=== PATIENT | male | born 1985 ===

== ENCOUNTER 2016-12-12 09:20 | Emergency (ER) | payer BC ==
[2016-12-12 10:15] VITALS: BP 140/78
--- NOTE | 2016-12-12 10:32 | UC ---
UC General HPI - HPI Summary HPI Summary: complaint of rash under his arm that he noticed 2 weeks ago treated it with neosporin, lotrimin and hydrocortisone - helped reduce itching but hasn't changed in size at beginning of rash it was itchy and dried out and irritated denies fever and chills denies any new soaps ,medications,deoderant or detergents - History of Current Complaint Chief Complaint: [facility] Stated Complaint: SKIN COMPLAINT Time Seen by Provider: 12/12/16 10:25 Hx Obtained From: Patient - Allergy/Home Medications Allergies/Adverse Reactions: Allergies Allergy/AdvReac Type Severity Reaction Status Date / Time No Known Allergies Allergy Verified 12/12/16 10:15 Home Medications: Home Medications Clotrimazole 1% TOPICAL (NF) [Lotrimin 1% TOPICAL (NF)] 12/12/16 [History] Hydrocortisone 0.5% CM(NF) [Hydrocortisone 0.5% CREAM(NF)] 12/12/16 [History] Ibuprofen TAB* [Advil TAB*] 12/12/16 [History] Neomycin/Polym/Bacit TOP OINT* [Neosporin TOP OINT TUBE*] 12/12/16 [History] PMH/Surg Hx/FS Hx/Imm Hx Previously Healthy: Yes Endocrine History Of: Denies: Diabetes, Thyroid Disease Cardiovascular History Of: Denies: Cardiac Disorders, Hypertension Respiratory History Of: Denies: COPD, Asthma GI/ History Of: Denies: Ulcer - Surgical History Surgical History: None - Family History Known Family History: Negative: Cardiac Disease, Hypertension, Diabetes - Social History Occupation: Employed Full-time Lives: With Family Alcohol Use: Rare Substance Use Type: None Smoking Status (MU): Never Smoked Tobacco Review of Systems Constitutional: Negative Skin: Rash Eyes: Negative ENT: Negative Respiratory: Negative Cardiovascular: Negative Gastrointestinal: Negative Genitourinary: Negative Motor: Negative Neurovascular: Negative Musculoskeletal: Negative Neurological: Negative Psychological: Negative All Other Systems Reviewed And Are Negative: Yes Physical Exam Triage Information Reviewed: Yes Appearance: No Pain Distress, Well-Nourished, Obese Vital Signs: Initial Vital Signs Temp 97.8 F 12/12/16 10:08 Pulse 66 12/12/16 10:08 Resp 16 12/12/16 10:08 BP 140/78 12/12/16 10:08 Pulse Ox 97 12/12/16 10:08 Vital Signs Reviewed: Yes Eyes: Positive: Conjunctiva Clear ENT: Positive: Pharynx normal, TMs normal Neck: Positive: No Lymphadenopathy Respiratory: Positive: Lungs clear, Normal breath sounds, No respiratory distress Cardiovascular: Positive: RRR, No Murmur, Pulses Normal Abdomen Description: Positive: Nontender, Soft Bowel Sounds: Positive: Present Musculoskeletal: Positive: No Edema Neurological: Positive: Alert Psychological Exam: Normal Skin: Positive: Other - left axilla- dark erythemoatous 7x6 cm area with raised border Course/Dx - Differential Dx - Multi-Symptom Differential Diagnoses: Other - cellulits, tinea, contact dermatitis Provider Diagnoses: tinea. elevated blood pressure Discharge - Discharge Plan Condition: Stable Disposition: HOME Prescriptions: Clotrimazole/Betamethasone* [Lotrisone Cream*] 1 applic TOPICAL BID #1 tube Patient Education Materials: Tinea Corporis (ED) Referrals: Cruz Clinton MD [Primary Care Provider] - Additional Instructions: Please start cream as directed Increase fluids and rest Please review your discharge instructions. If your symptoms do not improve please call your primary care provider or return to urgent care. Your blood pressure is elevated. Please contact your primary care provider within 1 day -4 weeks for further evaluation.
== END 2016-12-12 10:46 | disposition home or self-care (01) ==
LOC: UCEAST 09:20
DX: B35.4 Tinea corporis (principal); R03.0 Elevated blood-pressure reading, without diagnosis of hypertension; E66.9 Obesity, unspecified
CPT/HCPCS: 99212; G0463

== ENCOUNTER 2017-08-17 17:17 | Emergency (ER) | payer BC ==
[2017-08-17 18:13] VITALS: BP 158/92
--- NOTE | 2017-08-17 18:51 | UC ---
Respiratory Complaint HPI - HPI Summary HPI Summary: 32 yo WM c/o cough and chest congestion x5 days. Tp is going to [facility] and wants to "make sure there's nothing serious" Had fever of 103 3 days ago but responded to OTC antipyretics - History of Current Complaint Chief Complaint: UCGeneralIllness Stated Complaint: FLU-LIKE SYMPTOMS Time Seen by Provider: 08/17/17 18:38 Hx Obtained From: Patient Onset/Duration: Sudden Onset, Gradual Onset Severity Initially: Moderate Associated Signs And Symptoms: Positive: Fever, Chills, Pleuritic Chest Pain. Negative: Dyspnea, Wheezing, Hemoptysis, Dizziness - Allergies/Home Medications Allergies/Adverse Reactions: Allergies Allergy/AdvReac Type Severity Reaction Status Date / Time No Known Allergies Allergy Verified 08/17/17 18:13 Home Medications: Home Medications Guaifenesin [Guaifenesin ER] 1,200 mg PO BID PRN 08/17/17 [History Confirmed 10/30] PMH/Surg Hx/FS Hx/Imm Hx - Surgical History Surgical History: None - Family History Known Family History: Negative: Cardiac Disease, Hypertension, Diabetes - Social History Alcohol Use: Rare Substance Use Type: None Smoking Status (MU): Never Smoked Tobacco Review of Systems Constitutional: Negative Skin: Negative Eyes: Negative ENT: Sinus Congestion Respiratory: Cough Cardiovascular: Negative Gastrointestinal: Negative Genitourinary: Negative Motor: Negative Neurovascular: Negative Musculoskeletal: Negative Neurological: Negative Psychological: Negative All Other Systems Reviewed And Are Negative: Yes Physical Exam Triage Information Reviewed: Yes Vital Signs: Initial Vital Signs Temp 36.5 C 08/17/17 18:08 Pulse 80 08/17/17 18:08 Resp 20 08/17/17 18:08 BP 158/92 08/17/17 18:08 Pulse Ox 98 08/17/17 18:08 Eye Exam: Normal ENT Exam: Normal Dental Exam: Normal Neck exam: Normal Neck: Positive: 1 Respiratory Exam: Normal Respiratory: Positive: Lungs clear, No respiratory distress. Negative: Respiratory distress, Decreased breath sounds, Accessory muscle use, Crackles, Rhonchi, Stridor, Wheezing Cardiovascular Exam: Normal Abdominal Exam: Normal Musculoskeletal Exam: Normal Neurological Exam: Normal Psychological Exam: Normal Skin Exam: Normal UC Diagnostic Evaluation - Laboratory O2 Sat by Pulse Oximetry: 98 Respiratory Course/Dx - Course Course Of Treatment: Rapid Flu positive for Flu A but out of 48hr tx window.Continue OTC analgesics and PO hydration - Differential Dx/Diagnosis Provider Diagnoses: Influenza Discharge - Discharge Plan Condition: Stable Disposition: HOME Patient Education Materials: Influenza (ED) Referrals: Cruz Clinton MD [Primary Care Provider] - Additional Instructions: as tolerated
== END 2017-08-17 18:54 | disposition home or self-care (01) ==
LOC: UCEAST 17:17
DX: J11.1 Influenza due to unidentified influenza virus with other respiratory manifestations (principal)
CPT/HCPCS: 87502; 99211; G0463